=== PATIENT | female | born 1955 | race Caucasian/White ===

== ENCOUNTER 2019-07-03 08:10 | Outpatient (CLI) | payer MEDICAID, SELFPAY ==
--- NOTE | 2019-07-03 08:11 | MM_ITS ---
WS: [id number] BILATERAL DIGITAL SCREENING MAMMOGRAPHY WITH CAD CLINICAL INFORMATION: SCREENING HISTORY: Pain left side under nipple COMPARISON: May 03, 2018 TECHNIQUE: Bilateral CC and MLO views. FINDINGS: Scattered fibroglandular densities bilaterally. No suspicious focal mass, asymmetry, calcifications, or architectural distortion. No evidence of malignancy. MM/[place] [id number] IMPRESSION: BI-RADS: 1-Negative FOLLOW UP: 1 Year Follow-up Recommend return to annual screening mammography.
== END 2019-07-03 08:11 | disposition home or self-care (01) ==
LOC: RADSHAW 08:10
PROVIDERS: PCP Nurse Practitioner Family; Visit Provider Nurse Practitioner Family
DX: Z12.31 Encounter for screening mammogram for malignant neoplasm of breast (principal)
CPT/HCPCS: 77067

== ENCOUNTER → 2020-09-14 08:05 | Outpatient (BNVA) | payer MEDICAID, SELFPAY | PROVIDERS: PCP Nurse Practitioner; Visit Provider Nurse Practitioner | DX: Z13.6 Encounter for screening for cardiovascular disorders (principal); E66.01 Morbid (severe) obesity due to excess calories | CPT/HCPCS: 80053; 80061; 84443; 85025 ==

== ENCOUNTER → 2020-10-21 14:21 | Outpatient (BNVA) | payer MEDICAID, SELFPAY | PROVIDERS: PCP Nurse Practitioner; Visit Provider Nurse Practitioner | DX: M25.561 Pain in right knee (principal); M54.9 Dorsalgia, unspecified; M25.521 Pain in right elbow | CPT/HCPCS: 72072; 72100; 73080; 73562 ==

== ENCOUNTER 2020-11-06 12:38 | Outpatient (CLI) | payer MEDICAID, SELFPAY ==
--- NOTE | 2020-11-06 13:30 | USCV_ITS ---
Adri Alvarez Age: 65 Gender: F : 1955 Exam Date: 11/06/2020 13:09 Ordering Phys: Joaquim Canela M.D ([email or web address]) Technologist: Louisa Carter Exam Location: [facility] – [place] Indication: chest pain BP: 129 / 70 HR: 65 Rhythm: Sinus Technical Quality: Adequate MEASUREMENTS (Male / Female) Normal Values 2D ECHO LV Diastolic Diameter PLAX 4.3 cm 4.2 - 5.9 / 3.9 - 5.3 cm LV Systolic Diameter PLAX 3.1 cm LV Chamber Size 4.1 cm IVS Diastolic Thickness 1.2 cm 0.6 - 1.0 / 0.6 - 0.9 cm IVS Systolic Thickness 1.7 cm LVPW Diastolic Thickness 1.3 cm 0.6 - 1.0 / 0.6 - 0.9 cm LVPW Systolic Thickness 2.0 cm RV Chamber Size 3.7 cm LVOT Diameter 2.0 cm LV Ejection Fraction 2D Teich 53.7 % LV Ejection Fraction MOD 2C 73.9 % LV Ejection Fraction 2C AL 76.2 % LA Diameter 2.6 cm LA Width 3.0 cm LA Height 5.1 cm RA Width 3.4 cm RA Height 3.9 cm Aorta at Sinotubular Diameter 2.8 cm M-MODE Aortic Annulus Diameter 2.8 cm LA Ao Ratio MM 0.9 MV E Point Septal Separation 0.3 cm DOPPLER AV Peak Velocity 183.0 cm/s LVOT Peak Velocity 104.7 cm/s AV Area Cont Eq vti 1.9 cm squared AV Area Cont Eq pk 1.8 cm squared MV Area PHT 3.3 cm squared Mitral E to A Ratio 1.0 MV E' Velocity 62.0 cm/s Mitral E to MV E' Ratio 7.3 Mitral E to LV E' Lateral Ratio 8.1 Mitral E to LV E' Septal Ratio 6.8 TR Peak Velocity 193.5 cm/s TR Peak Gradient 15.0 mmHg TR Mean Velocity 137.0 cm/s TR Mean Gradient 8.4 mmHg TR Velocity Time Integral 41.1 cm Right Atrial Pressure 3.0 mmHg Pulmonary Artery Systolic Pressu 18.0 mmHg PV Peak Velocity 116.0 cm/s RV Acceleration Time 0.1 s RV Ejection Time 0.3 s RV AcT/ET 0.4 FINDINGS Left Ventricle Normal left ventricular size. LVsystolic function is normal with EF of 55-60%. No regional wall motion abnormalities. Normal diastolic filling pattern. Right Ventricle The right ventricle is normal in size and function. Right Atrium The right atrium is normal in size. Left Atrium The left atrium is normal in size. Mitral Valve Structurally normal mitral valve without significant stenosis or prolapse. There is no mitral regurgitation. Aortic Valve Structurally normal aortic valve without significant sclerosis or stenosis. There is no aortic regurgitation. Tricuspid Valve Structurally normal tricuspid valve without significant stenosis or regurgitation. Insufficient TR jet to calculate RVSP Pulmonic Valve Structurally normal pulmonic valve without significant stenosis. There is no pulmonic regurgitation. Pericardium Normal pericardium without effusion. Aorta Normal ascending aorta dimension. CONCLUSIONS LV systolic function is normal with EF of 55-60% Diastolic function is normal No significant valvular heart disease Compared to prior echocardiogram from Joaquim Canela MD (Electronically Signed) Final Date: 15 November 2020 17:03 S
--- NOTE | 2020-11-06 14:15 | USCV_ITS ---
Adri Alvarez Age: 65 Gender: F : 1955 Exam Date: 11/06/2020 12:52 Ordering Phys: Joaquim Canela M.D ([email or web address]) Technologist: Mary Rosas [place] [facility] [place]: chest pain Risk Factors: Previous Vascular Surgery: Right Brachial BP: / Left Brachial BP: / Right Left Velocity (cm/s) Spectral Plaque Velocity (cm/s) Spectral Plaque Syst/Diast Broadening Syst/Diast Broadening 132.30/32.00 Prox CCA 124.50/ 30.20 102.50/24.30 Mid CCA 132.10/ 29.50 113.60/33.10 Distal CCA 132.10/ 32.60 95.90/ 35.30 Prox ICA 104.20/ 30.80 118.00/29.80 Mid ICA 86.10 / 21.10 99.20/ 34.20 Distal ICA 68.10 / 19.50 116.90 ECA 95.10 0.89 ICA/CCA 0.79 Antegrade Vertebral Antegrade 55.20/ 17.10 cm/s 35.00/ 12.40 cm/s Tri Subclavian Tri 116.0 202.0 0 0 FINDINGS Comparison: none available. No significant elevation of systolic or diastolic velocities. Waveforms are normal. Minimal bilateral, intimal thickening with no elevation of velocity. CONCLUSIONS Bilateral ICA stenosis less than 50%. Mild carotid atherosclerosis. Dr. Edna Garvey DO (Electronically Signed) Final Date: 06 November 2020 13:26 S
== END 2020-11-06 12:39 | disposition home or self-care (01) ==
LOC: US 12:39
PROVIDERS: PCP Nurse Practitioner; Visit Provider Internal Medicine
DX: R07.9 Chest pain, unspecified (principal); I65.23 Occlusion and stenosis of bilateral carotid arteries
CPT/HCPCS: 93271; 93306; 93880

== ENCOUNTER → 2020-12-22 09:22 | Outpatient (BNVA) | payer MEDICAID, SELFPAY | PROVIDERS: PCP Nurse Practitioner; Visit Provider Nurse Practitioner | DX: G50.0 Trigeminal neuralgia (principal); I10 Essential (primary) hypertension | CPT/HCPCS: 80053; 82306; 82607 ==

== ENCOUNTER → 2021-08-25 11:36 | Outpatient (BNVA) | payer MEDICAID, SELFPAY | PROVIDERS: PCP Nurse Practitioner; Visit Provider Nurse Practitioner | DX: K30 Functional dyspepsia (principal); E55.9 Vitamin D deficiency, unspecified | CPT/HCPCS: 80053; 80061; 82306; 85025 ==

== ENCOUNTER 2021-12-02 08:23 | Outpatient (CLI) | payer MEDICAID, SELFPAY ==
--- NOTE | 2021-12-02 09:30 | CT_ITS ---
WS: [id number] CT ABDOMEN AND PELVIS NONCONTRAST HISTORY: R63.4 - Abnormal weight loss TECHNIQUE: Imaging performed through the abdomen and pelvis. Coronal and sagittal reformats are submi tted. All CT scans at [facility] use at least one of these dose optimization techniques: auto mated exposure control; mA and/or kV adjustment per patient size (includes targeted exams where dose is matched to clinical indication); or iterative reconstruction. DLP: 1319.93 mGy.cm COMPARISON: 01/07/2016 Lower thorax: 2 mm nodule at the LEFT lung base unchanged since 01/07/2016. Heart is normal size. Small amount of oral contrast in the distal esophagus from reflux disease. Liver: Normal size liver with mild hepatic steatosis. No bile duct dilatation. Gallbladder: Prior cholecystectomy. Pancreas: Normal size and attenuation. Normal pancreatic duct. No pancreatitis or mass. Spleen: Normal. Adrenal glands: Normal. No mass. Right kidney: Normal size kidney with no mass or hydronephrosis. Left kidney: Normal size kidney with no mass or hydronephrosis. Fat-containing 3 mm nodule lower pole is probably a small angiomyolipoma. Aorta: Mild atherosclerosis abdominal aorta with no aneurysm. Moderate calcific burden at the origin of the celiac axis and SMA. There is a component of mild stenosis. No free fluid or free air. There are a few small stable lymph nodes at the GE junction. No adenopathy . GI tract: No evidence for appendicitis. There are a few scattered colonic diverticula without acute d iverticulitis. Stomach is normally distended. No small bowel obstruction. Abdominal wall: Small umbilical hernia contains fat only. Pelvis: Normally distended urinary bladder. No free fluid or adenopathy. Prior hysterectomy. Osseous structures: Unremarkable. CT/CT abdomen pelvis wo con [id number] IMPRESSION: 1. No acute abdominal or pelvic abnormalities. 2. Mild hepatic steatosis. 3. Prior cholecystectomy and hysterectomy. 4. Mild diverticulosis without acute diverticulitis. 5. Moderate atherosclerotic plaque within the aorta with calcific burden at th e celiac axis and SMA. Places the patient at increased risk for ischemia. No is chemic changes at this time.
[2021-12-02] MEDS: barium sulfate 450 mL Oral Susp PO (10:07)
== END 2021-12-02 08:24 | disposition home or self-care (01) ==
LOC: RAD 08:24
PROVIDERS: PCP Nurse Practitioner; Visit Provider Nurse Practitioner
DX: R63.4 Abnormal weight loss (principal); K30 Functional dyspepsia; K76.0 Fatty (change of) liver, not elsewhere classified; Z90.49 Acquired absence of other specified parts of digestive tract; Z90.710 Acquired absence of both cervix and uterus; K57.90 Diverticulosis of intestine, part unspecified, without perforation or abscess without bleeding; I70.0 Atherosclerosis of aorta
CPT/HCPCS: 74176

== ENCOUNTER → 2021-12-22 10:41 | Outpatient (BNVA) | payer MEDICAID, SELFPAY | PROVIDERS: PCP Nurse Practitioner; Visit Provider Nurse Practitioner | DX: M25.522 Pain in left elbow (principal) | CPT/HCPCS: 73080 ==

== ENCOUNTER 2022-07-07 11:21 | Outpatient (CLI) | payer MEDICAID, SELFPAY ==
--- NOTE | 2022-07-07 11:58 | MM_ITS ---
WS: [id number] BILATERAL SCREENING DIGITAL TOMOSYNTHESIS MAMMOGRAM WITH CAD HISTORY: SCREENING COMPARISON: 10/05/2020 and 07/03/2019 Bilateral CC and MLO views with tomosynthesis and synthetic mammography submitted. Computer aided det ection analyzed. Breast composition: There are scattered areas of fibroglandular density. No suspicious masses, microc alcifications or architectural distortion. MM/[place] [id number] IMPRESSION: BI-RADS: 1-Negative FOLLOW UP: 1 Year Follow-up
== END 2022-07-07 11:22 | disposition home or self-care (01) ==
LOC: RAD 11:25
PROVIDERS: PCP Nurse Practitioner; Visit Provider Nurse Practitioner
DX: Z12.31 Encounter for screening mammogram for malignant neoplasm of breast (principal)
CPT/HCPCS: 77063; 77067

== ENCOUNTER → 2022-08-17 14:00 | Outpatient (BNVA) | payer MEDICAID, SELFPAY | PROVIDERS: PCP Nurse Practitioner; Visit Provider Nurse Practitioner | DX: M47.814 Spondylosis without myelopathy or radiculopathy, thoracic region (principal); M89.8X1 Other specified disorders of bone, shoulder | CPT/HCPCS: 72072; 73000 ==

== ENCOUNTER → 2023-05-25 15:07 | Outpatient (BNVA) | payer MEDICAID, SELFPAY | PROVIDERS: PCP Nurse Practitioner; Visit Provider Nurse Practitioner | DX: I10 Essential (primary) hypertension (principal); E55.9 Vitamin D deficiency, unspecified | CPT/HCPCS: 80053; 80061; 82306; 82607; 84443 ==

== ENCOUNTER → 2023-07-07 10:22 | Outpatient (BNVA) | payer MEDICAID, SELFPAY | PROVIDERS: PCP Nurse Practitioner; Visit Provider Family Medicine | DX: M25.511 Pain in right shoulder; M19.011 Primary osteoarthritis, right shoulder | CPT/HCPCS: 73030 ==

== ENCOUNTER 2023-07-11 09:20 | Outpatient (CLI) | payer MEDICAID, SELFPAY ==
--- NOTE | 2023-07-11 09:30 | MM_ITS ---
WS: [id number] SCREENING DIGITAL TOMOSYNTHESIS MAMMOGRAM WITH CAD HISTORY: Z12.31 - Encounter for screening mammogram for malignant ... COMPARISON: 07/07/2022, 10/05/2020 Bilateral CC and MLO with tomosynthesis views submitted. Synthetic mammography reviewed. Computer aid ed detection analyzed. Breast composition: There are scattered areas of fibroglandular density. No suspicious masses, microc alcifications or architectural distortion. Benign calcification in the posterior lateral RIGHT breast . IMPRESSION: MM/[place] [id number] BI-RADS: 2-Benign FOLLOW UP: 1 Year Follow-up
== END 2023-07-11 09:21 | disposition home or self-care (01) ==
LOC: MOBLMAM 09:35
PROVIDERS: PCP Nurse Practitioner; Visit Provider Nurse Practitioner
DX: Z12.31 Encounter for screening mammogram for malignant neoplasm of breast (principal)
CPT/HCPCS: 77063; 77067

== ENCOUNTER 2023-07-12 09:51 | Outpatient (CLI) | payer MEDICAID, SELFPAY ==
--- NOTE | 2023-07-12 10:00 | US_ITS ---
WS: [id number] ULTRASOUND SOFT TISSUES LEFT clavicle. HISTORY: R22.1 - Localized swelling, mass and lump, neck COMPARISON: Radiograph 08/17/2022 TECHNIQUE: 2-D and color Doppler imaging is submitted. There is a complex soft tissue mass associated with the medial end of the LEFT clavicle. This is a co mplex ill-defined mass with areas of decreased and increased echogenicity. There is some slight incre ased vascularity also associated with the mass. The entire collection measures approximately 1.6 x 2. 2 x 1.2 cm. This is asymmetric to the RIGHT clavicular head. The actual bone is not visible by ultras ound of the clavicle. IMPRESSION: 1. Mildly hypervascular complex soft tissue mass associated with the LEFT clavicular head. Different ial includes inflammatory arthropathy/rheumatoid arthritis of the LEFT clavicular head. SC joint infe ction is also a possibility but thought less likely. Cannot completely exclude a mass related to meta static disease. 2. Additional evaluation may include a CT of the SC joints with contrast. If there is current concer n for metastatic disease bone scan imaging may be of benefit.
== END 2023-07-12 09:52 | disposition home or self-care (01) ==
LOC: RAD 09:51
PROVIDERS: PCP Nurse Practitioner; Visit Provider Family Medicine
DX: R22.1 Localized swelling, mass and lump, neck (principal)
CPT/HCPCS: 76536

== ENCOUNTER 2023-07-24 07:51 | Outpatient (CLI) | payer MEDICAID, SELFPAY ==
--- NOTE | 2023-07-24 08:45 | NM_ITS ---
WS: [id number] NUCLEAR MEDICINE BONE SCAN Radiopharmaceutical: 24.5 Tc-99m MDP mCi IV Injection site: Antecubital Postinjection imaging delay: 1 hr CLINICAL INFORMATION: supraclavicular mass COMPARISON: Ultrasound 07/12/2023 FINDINGS: Bone lesions: Focal radiotracer uptake at the LEFT sternoclavicular articulation. This corresponds to the process previously described on the prior ultrasound. No other suspicious foci of uptake to indicate metastatic disease. Degenerative type uptake both knees and both AC joints. There are no osseous lesions suspicious for metastatic disease. Soft tissue contours: Normal. Kidneys: Normal. Other findings: None. IMPRESSION: 1. Focal radiotracer uptake at the LEFT sternoclavicular articulation. This corresponds to the proce ss previously described on the prior ultrasound. Focal uptake may be infectious, inflammatory, or deg enerative. Neoplasm is considered less likely. This could be further evaluated with contrast-enhanced CT if persistent concern 2. No other foci of abnormal bony activity.
== END 2023-07-24 07:52 | disposition home or self-care (01) ==
LOC: RAD 07:52
PROVIDERS: PCP Nurse Practitioner; Visit Provider Family Medicine
DX: R22.2 Localized swelling, mass and lump, trunk (principal)
CPT/HCPCS: 78306; A9561

== ENCOUNTER 2023-08-11 10:03 | Emergency (ER) | payer MEDICAID, SELFPAY ==
[2023-08-11] VITALS (9 sets, daily range): BP systolic 125–206; BP diastolic 70–92; PULSE 63–91; RESP 16–18; TEMP 36.5; O2SAT 96; BMI 35.7
--- NOTE | 2023-08-11 10:42 | XR_ITS ---
WS: [id number] Portable AP upright chest, 08/11/2023 Clinical Data: dyspnea/cough Comparison: Two-view chest, 06/23/2015. Findings: No nodules, masses or effusions are seen. The heart is normal. The pulmonary vascularity is not increased. No pneumonia or pneumothorax is seen. The aortic arch and descending thoracic aorta s how mild tortuosity. There is a monitor lead in the left axilla. Impression: Atherosclerosis.
--- NOTE | 2023-08-11 10:43 | ECG_ITS ---
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 Measurements Intervals [place] Rate: 59 P: 38 OR: 175 QRS: 32 QRSD: 86 T: 44 QT: 434 QTc: 431 Interpretive Statements SINUS BRADYCARDIA Compared to ECG 06/23/2015 12:39:32 No significant changes Electronically Signed On 08-11-2023 17:00:30 CDT by Joaquim Canela M.D. [email or web address]/store/[id number]
[2023-08-11] MEDS: hyDRALAzine 20 mg/mL INJ 1 mL IVP (11:24)
[2023-08-11 11:31] LABS: Add Urine Culture? No; Add Urine Microscopic? YES; Bacteria Urine 2+ /hpf; Bilirubin Urine Neg (Negative); Blood Urine Trace (Negative); Glucose Urine UA Norm (Normal); Ketones Urine Negative (Negative); Leukocyte Esterase Urine Negative (Negative); Nitrate Urine Negative (Negative); Protein Urine Neg (Negative); RBC Urine 0-4 /hpf (0-2); Squamous Epithelial Cell Urine 15-25 /hpf (0-5); Urine Appearance Hazy (CLEAR); Urine Color Yellow (Yellow); Urobilinogen Urine Neg (Negative); pH Urine 5 (5-7)
[2023-08-11 11:37] LABS: Basophils % 0.3 %; Eosinophils # 0.4 10^3/uL (0.0-0.8); Eosinophils % 5.9 %; Hematocrit 44.4 % (36-47); Lymphocytes # 1.8 10^3/uL (0.8-4.8); Mean Corpuscular HGB Conc 33.1 g/dL (30-55); Mean Corpuscular Hemoglobin 32.2 pg (27-33); Mean Corpuscular Volume 97.4 fl (85-98); Mean Platelet Volume 10.1 fL (7.4-10.4); Monocytes # 0.5 10^3/uL (0.2-0.9); Monocytes % 7.8 %; Neutrophils # 4.06 10^3/uL (1.8-7.7); Neutrophils % 59.9 %; Nucleated Red Blood Cells % 0 %; Platelet Count 248 10^3/cmm (157-399); Red Blood Count 4.56 10^6/uL (3.85-5.65); Red Cell Distribution Width 12.3 % (12.1-15.1); White Blood Count 6.78 10^3/uL (3.29-11.43)
[2023-08-11 11:56] LABS: Alanine Aminotransferase 21 U/L (0-33); Albumin Level 4.1 g/dL (3.5-5.2); Alkaline Phosphatase 77 U/L (35-105); Aspartate Amino Transferase 18 U/L (0-32); Blood Urea Nitrogen 13 mg/dL (8-23); Carbon Dioxide 24 mmol/L (22-29); Chloride 105 mmol/L (98-107); Creatinine Clr Calc Pharmacy 84.8437; Glomerular Filtration Rate 99.1 mL/min (90-130); Glucose 103 mg/dL (65-115); Osmolality Calculated 288 mOsm/kg (285-295); Sodium 139 mmol/L (136-145); Total Bilirubin 0.3 mg/dL (0.15-1.2); Total Protein 7.1 g/dL (6.6-8.7)
[2023-08-11 11:57] LABS: Troponin(5th) Baseline 8 ng/L (0-10)
--- NOTE | 2023-08-11 12:03 | CT_ITS ---
WS: [id number] CT HEAD NONCONTRAST HISTORY: headache, Nausea, elevated BP TECHNIQUE: Contiguous axial imaging performed through the brain in 2.5 mm imaging. Bone and soft tiss ue windows. Sagittal and coronal reformats reviewed. All CT scans at [facility] use at least one of these dose optimization techniques: automated exposure control; mA and/or kV adjustment per pa tient size (includes targeted exams where dose is matched to clinical indication); or iterative recon struction. DLP: 1080.88 mGy.cm COMPARISON: 12/02/2016 No acute intracranial hemorrhage, midline shift or mass effect. No atrophy or prior infarcts or herniation. No evidence for edema in the posterior circulation. Ventricles: Normal size with no hydrocephalus. Paranasal sinuses: Diffuse mucoperiosteal thickening throughout the sinus cavities. Mastoid air cells: Well pneumatized. Calvarium and scalp: Skull is intact with no soft tissue edema or swelling. IMPRESSION: 1. No acute intracranial hemorrhage or edema. 2. No hydrocephalus. No prior infarct. 3. Extensive chronic paranasal sinus disease.
--- NOTE | 2023-08-11 12:04 | W.ED.RECABL ---
HPI - Recheck/Abnormal Lab/Rx General: Chief Complaint: Recheck/Abnormal Lab/Rx Stated Complaint: High blood pressure Time Seen by Provider: 08/11/23 10:41 Source: patient Mode of arrival: ambulatory History of Present Illness: 68-year-old female presents emergency room with elevated blood pressure. She is not on any antihypertensive she has at high blood pressure which she describes as low blood sugars in the past. She has had episodes like this before she has a headache which along with it. No visual symptoms no difficulty speech or swallowing she states her legs felt numb yesterday that resolved. Denies chest pain. Review of Systems Const: Denies: fever(s) or chills Card: Denies: chest pain Resp: Denies: dyspnea GI: Denies: abdominal pain : Denies: dysuria, urinary frequency or urinary urgency Musc: Denies: neck pain or back pain Skin/Breast: Denies: rash PFSH ED PFSH: Medical History Spinal osteoarthritis Hyperlipidemia, mixed Hypertension Seasonal allergic rhinitis due to pollen Obesities, morbid Surgical History History of incisional hernia repair 1990 History of cholecystectomy open 1990 History of hysterectomy History of bladder surgery 2019 bladder sling Family History Other Diabetes Stroke Social History Smoking and tobacco/nicotine status: former use of tobacco/nicotine Second hand smoke exposure: No Alcohol intake: never Substance/Drug Use: never Adopted: No Caregiver/support person: No Lives independently: Yes Household members: none Housing: Manufactured/Mobile home Marital status: Number of children: 2 Highest education level completed: GED or Equivalent service: No Current occupational status: disabled Pets and animals: No Physical Exam Const: GENERAL APPEARANCE: cooperative and comfortable ORIENTATION/CONSCIOUSNESS: Yes awake, Yes oriented to person, Yes oriented to place and Yes oriented to time HENMT: COMMON NORMALS: normocephalic, atraumatic and hearing grossly normal bilaterally HEAD & SCALP: normocephalic and atraumatic Resp: COMMON NORMALS: normal respiratory effort, No retractions, No use of accessory muscles and clear to auscultation bilaterally AUSCULTATION: clear to auscultation bilaterally Cardio: COMMON NORMALS: regular rate, regular rhythm and No murmurs present (Cardio) RATE: regular rate RHYTHM: regular rhythm GI: COMMON NORMALS: Soft to palpation and No hepatosplenomegaly present AUSCULTATION: Yes normoactive bowel sounds PALPATION: Yes Soft to palpation, No Tenderness to palpation present (GI), No Guarding due to palpation present (GI) and Yes No hepatosplenomegaly present Extremity: COMMON NORMALS: normal to inspection, capillary refill normal, no clubbing, cyanosis or edema, no calf tenderness and no pedal edema Neuro: SENSORIUM/ORIENTATION: Yes oriented to person, Yes oriented to place and Yes oriented to time Skin: COMMON NORMALS: no rashes or lesions noted GENERAL SKIN EXAM: no rashes or lesions noted Course Vital Signs: Vital signs: Vital Signs Temperature 97.7 F 08/11/23 10:06 Pulse Rate 91 08/11/23 13:53 Respiratory Rate 18 08/11/23 13:53 Blood Pressure 160/81 08/11/23 16:09 Pulse Oximetry 96 08/11/23 13:53 Oxygen Delivery Me thod Room Air 08/11/23 13:53 MDM - Recheck/Abnormal Lab/Rx Medical Decision Making Blood pressure improved patient's headache persisted she was given Reglan and Benadryl is feeling much better nausea vomiting have resolved repeat exam shows no focal neurologic deficits noted. CT head did not show any acute findings. NIH score is 0. No ataxia no suggestion of posterior circulation stroke at this time. Discharge patient home on amlodipine 5 mg daily Tylenol ibuprofen as needed for persistent headache follow-up with primary care doctor within the next week to reevaluate blood pressure. Medical Records I reviewed the patient's medical records. Lab Data I reviewed the patient's lab results. 08/11/23 11:25 08/11/23 11:25 Laboratory Results WBC 6.78 10^3/uL (3.29-11.43) 08/11/23 11:25 RBC 4.56 10^6/uL (3.85-5.65) 08/11/23 11:25 Hgb 14.70 g/dL (11.27-16.99) 08/11/23 11:25 Hct 44.4 % (36-47) 08/11/23 11:25 MCV 97.4 fl (85-98) 08/11/23 11:25 MCH 32.2 pg (27-33) 08/11/23 11: MCHC 33.1 g/dL (30-55) 08/11/23 11:25 RDW 12.3 % (12.1-15.1) 08/11/23 11:25 Plt Count 248 10^3/cmm (157-399) 08/11/23 11:25 MPV 10.1 fL (7.4-10.4) 08/11/23 11:25 Neut % (Auto) 59.9 % 08/11/23 11: Lymph % (Auto) 26.0 % 08/11/23 11: [place] % (Auto) 7.8 % 08/11/23 11: Eos % (Auto) 5.9 % 08/11/23 11: Baso % (Auto) 0.3 % 08/11/23 11:25 Neut # (Auto) 4.06 10^3/uL (1.8-7.7) 08/11/23 11:25 Lymph # (Auto) 1.8 10^3/uL (0.8-4.8) 08/11/23 11:25 [place] # (Auto) 0.5 10^3/uL (0.2-0.9) 08/11/23 11:25 Eos # (Auto) 0.4 10^3/uL (0.0-0.8) 08/11/23 11:25 Baso # (Auto) 0.0 10^3/uL (0.0-0.1) 08/11/23 11:25 Nucleated RBC % (auto) 0 % 08/11/23 11:25 Nucleated RBCs # 0.0 /100WBC 08/11/23 11:25 Sodium 139 mmol/L (136-145) 08/11/23 11:25 Potassium 4.4 mmol/L (3.5-5.1) 08/11/23 11: Chloride 105 mmol/L (98-107) 08/11/23 11: Carbon Dioxide 24 mmol/L (22-29) 08/11/23 11:25 Anion Gap 14.4 (5-19) 08/11/23 11:25 BUN 13 mg/dL (8-23) 08/11/23 11:25 Creatinine 0.6 mg/dL (0.5-0.9) 08/11/23 11:25 GFR Calculation 99.1 mL/min (90-130) 08/11/23 11:25 Glucose 103 mg/dL (65-115) 08/11/23 11:25 Calculated Osmolality 288 mOsm/kg (285-295) 08/11/23 11:25 Calcium 10.0 mg/dL (8.5-10.5) 08/11/23 11:25 Total Bilirubin 0.3 mg/dL (0.15-1.2) 08/11/23 11:25 AST 18 U/L (0-32) 08/11/23 11: ALT 21 U/L (0-33) 08/11/23 11:25 Alkaline Phosphatase 77 U/L (35-105) 08/11/23 11:25 Troponin T Baseline 8 ng/L (0-10) 08/11/23 11:25 Troponin T 120 Minute 7.31 ng/L (0-10) 08/11/23 13:13 Delta Troponin T -0.69 ABS# (0-10) L 08/11/23 13:13 Total Protein 7.1 g/dL (6.6-8.7) 08/11/23 11:25 Albumin 4.1 g/dL (3.5-5.2) 08/11/23 11:25 Globulin 3.0 g/dL (1.3-4.6) 08/11/23 11:25 Urine Color Yellow (Yellow) 08/11/23 10:24 Urine Appearance Hazy (CLEAR) A 08/11/23 10:24 Urine pH 5 (5-7) 08/11/23 10:24 Ur Specific [place] 1.020 (1.005-1.030) 08/11/23 10:24 Urine Protein Neg (Negative) 08/11/23 10:24 Urine Glucose (UA) Norm (Normal) 08/11/23 10:24 Urine Ketones Negative (Negative) 08/11/23 10:24 Urine Blood Trace (Negative) H 08/11/23 10:24 Urine Nitrate Negative (Negative) 08/11/23 10:24 Urine Bilirubin Neg (Negative) 08/11/23 10:24 Urine Urobilinogen Neg mg/dL (Negative) 08/11/23 10:24 Ur Leukocyte Esterase Negative (Negative) 08/11/23 10:24 Urine RBC 0-4 /hpf (0-2) H 08/11/23 10:24 Urine WBC None /hpf (0-5) 08/11/23 10:24 Ur Squamous Epith Cells 15-25 /hpf (0-5) H 08/11/23 10:24 Amorphous Sediment Not Reportable 08/11/23 10:24 Urine Bacteria 2+ /hpf (NONE) H 08/11/23 10:24 All radiology interpretation(s) finalized by discharge Discharge Plan Discharge Patient Disposition: Home Clinical Impression: Headache Hypertension Qualifiers: Hypertension type: primary hypertension Qualified Code(s): I10 - Essential (primary) hypertension Condition: Stable Prescriptions: New amlodipine 5 mg tablet 5 mg PO DAILY Qty: 30 0RF No Action acetaminophen [Tylenol Extra Strength] 500 mg tablet 500 mg PO Q6H PRN (Reason: Pain) omega 5-hph-jxh-fish oil [Fish Oil] 1,000 mg (120 mg-180 mg) capsule 2 cap PO BID Qty: 120 0RF Metamucil 3.4 gram/5.4 gram powder 1 tbsp PO BID PRN (Reason: constipation.) Rx Instructions: mix into at least 8 oz of water or juice before administering Discharge Orders: Discharge ED (Routine); Ordered 08/11/23 Ordered By: Esteban Dias Referrals: Ramesh Angelo, [facility] [Primary Care Provider] - Discharge Diet: Usual diet Discharge Activity: Resume usual activity Patient Instructions: Opioid Safety, Pain Management Activity Restrictions/Additional Instructions: Thank you for choosing [facility] for your healthcare needs today. Please realize this is an emergency room and that we are providing you with a medical screening exam and this may not be complete and all inclusive of all the testing and or work up that you may need to determine your ailment or severity of your illness. It is very important that you follow up as instructed or that you return to the Emergency Department should you have concerns or if your condition changes or worsens in any way. You were seen today for headache and elevated blood pressure. Recommend you start amlodipine 5 mg once daily follow-up with your primary care doctor the next week to reevaluate blood pressure. You can take Tylenol ibuprofen as needed if your headache symptoms recur Coding Level of Care Code ED Diamond Die Maker for Gayathri Carter
[2023-08-11 12:15] LABS: Anion Gap 14.4 (5-19); Potassium 4.4 mmol/L (3.5-5.1)
--- NOTE | 2023-08-11 12:43 | ECG_ITS ---
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 Measurements Intervals [place] Rate: 79 P: 73 FL: 184 QRS: 43 QRSD: 89 T: 58 QT: 411 QTc: 473 Interpretive Statements SINUS RHYTHM WITH SINUS ARRHYTHMIA Compared to ECG 08/11/2023 10:55:53 Sinus bradycardia no longer present Electronically Signed On 08-11-2023 17:05:15 CDT by Joaquim Canela M.D. [id number]
[2023-08-11] MEDS: ketorolac 30 mg/mL INJ IVP (12:51)
[2023-08-11] MEDS: amlodipine 10 mg Tablet PO (13:42)
[2023-08-11 13:55] LABS: Troponin 5 2HR 7.31 ng/L (0-10)
[2023-08-11 13:56] LABS: Troponin 5 2HR Delta -0.69 ABS# (0-10)
[2023-08-11] MEDS: diphenhydrAMINE 50 mg/mL SDV 1mL IVP (14:40)
[2023-08-11] MEDS: metoclopramide 5 mg/mL SDV 2 mL 10 MG IVP (14:40)
== END 2023-08-11 16:10 | disposition home or self-care (01) ==
PROVIDERS: Emergency Provider Family Medicine; PCP Nurse Practitioner
DX: I10 Essential (primary) hypertension (principal); R51.9 Headache, unspecified; Z87.891 Personal history of nicotine dependence; E78.2 Mixed hyperlipidemia
CPT/HCPCS: 36415; 70450; 71045; 80053; 81001; 84484; 85025; 93005; 96374; 96375; 99285; J0360; J1200; J1885; J2765

== ENCOUNTER 2023-09-01 08:06 | Outpatient (CLI) | payer MEDICAID, SELFPAY ==
--- NOTE | 2023-09-01 08:09 | CTR_ITS ---
PROCEDURE INFORMATION: Exam: CT Abdomen And Pelvis Without Contrast Exam date and time: 09/01/2023 8:23 AM Age: 68 years old Clinical indication: Abdominal pain; Localized; Right upper quadrant (ruq); Prior surgery; Surgery date: 6+ months; Surgery type: Gb, incisional hernia, hyster, bladder tie; Additional info: Ruq pain TECHNIQUE: Imaging protocol: Computed tomography of the abdomen and pelvis without contrast. Radiation optimization: All CT scans at this facility use at least one of these dose optimization techniques: automated exposure control; mA and/or kV adjustment per patient size (includes targeted exams where dose is matched to clinical indication); or iterative reconstruction. COMPARISON: CT abdomen pelvis wo con [id number] 08/06/2021 09:47 RADIATION DOSE METRICS: Total DLP (mGy-cm): 904.63 FINDINGS: Liver: Hepatic steatosis. Gallbladder and bile ducts: Cholecystectomy. Pancreas: Normal. No ductal dilation. Spleen: Normal. No splenomegaly. Adrenal glands: Normal. No mass. 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 The kidneys are otherwise unremarkable Stomach and bowel: Colonic diverticulosis but no evidence of diverticulitis. Small duodenal diverticulum. The small bowel loops are unremarkable. Appendix: No evidence of appendicitis. Intraperitoneal space: No free air or free fluid. Vasculature: Stable calcified plaques at the origins of the renal arteries, celiac trunk and SMA. Stable calcified plaques of the infrarenal abdominal aorta and iliac arteries. Lymph nodes: Mild stranding of the mid mesenteric fat with several small mesenteric lymph nodes. This imer mesentery ? is nonspecific but can be seen with mesenteric panniculitis. Urinary bladder: Unremarkable as visualized. Reproductive: Hysterectomy. Bones/joints: No acute osseous lesions. Soft tissues: Tiny fat containing periumbilical hernia. CT/CT abdomen pelvis wo con [id number] IMPRESSION: 1. Hepatic steatosis. 2. Previous cholecystectomy. No biliary dilatation. 3. Mild stranding of the mid mesenteric fat with several small mesenteric lymph nodes, nonspecific but can be seen with mesenteric panniculitis 4. 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
== END 2023-09-01 08:07 | disposition home or self-care (01) ==
LOC: RAD 08:06
PROVIDERS: PCP Nurse Practitioner; Visit Provider Internal Medicine
DX: K76.0 Fatty (change of) liver, not elsewhere classified (principal); D17.71 Benign lipomatous neoplasm of kidney; R10.11 Right upper quadrant pain
CPT/HCPCS: 74176

== ENCOUNTER → 2023-12-11 09:02 | Outpatient (BNVA) | payer MEDICAID, SELFPAY | PROVIDERS: PCP Nurse Practitioner; Visit Provider Nurse Practitioner | DX: M25.552 Pain in left hip (principal); M25.562 Pain in left knee; M54.50 Low back pain, unspecified; M79.605 Pain in left leg | CPT/HCPCS: 73502; 73562 ==

== ENCOUNTER → 2024-03-13 08:26 | Outpatient (BNVA) | payer MEDICAID, SELFPAY | PROVIDERS: PCP Nurse Practitioner; Visit Provider Nurse Practitioner | DX: E78.2 Mixed hyperlipidemia (principal); E55.9 Vitamin D deficiency, unspecified | CPT/HCPCS: 80053; 80061; 82306; 84443; 85025 ==

== ENCOUNTER → 2024-05-28 13:52 | Outpatient (BNVA) | payer MEDICAID, SELFPAY | PROVIDERS: PCP Nurse Practitioner; Visit Provider Student in an Organized Health Care Education/Training Program | DX: M17.12 Unilateral primary osteoarthritis, left knee (principal); M25.562 Pain in left knee | CPT/HCPCS: 73560; 73565; 99204 ==

== ENCOUNTER 2024-07-04 13:00 | Outpatient (CLI) | payer MEDICAID, SELFPAY ==
--- NOTE | 2024-07-04 13:07 | XR_ITS ---
WS: [id number] XR cervical spine 3V* [id number] REASON FOR EXAM: M54.2 - Cervicalgia FINDINGS: Mild straightening of the normal lordosis of the cervical spine. No significant compression deformity or focal lesion of the cervical vertebrae. Normal odontoid. Moderate narrowing of the C5-C6 and C6-C7 disc spaces with moderate endplate sclerosis and posterior and anterior osteophytosis. No significant listhesis. Bilateral calcified carotid artery plaque. XR/XR cervical spine 3V* [id number] IMPRESSION: Cervical degenerative spondylosis progressive compared to 09/24/2015. Bilateral calcified carotid artery plaque.
== END 2024-07-04 13:01 | disposition home or self-care (01) ==
PROVIDERS: PCP Nurse Practitioner; Visit Provider Nurse Practitioner
DX: M54.2 Cervicalgia (principal); M47.892 Other spondylosis, cervical region; R93.7 Abnormal findings on diagnostic imaging of other parts of musculoskeletal system; I65.23 Occlusion and stenosis of bilateral carotid arteries
CPT/HCPCS: 72040

== ENCOUNTER → 2025-03-06 07:58 | Outpatient (BNVA) | payer MEDICAID, SELFPAY | PROVIDERS: PCP Nurse Practitioner; Visit Provider Nurse Practitioner | DX: E78.2 Mixed hyperlipidemia (principal); E55.9 Vitamin D deficiency, unspecified | CPT/HCPCS: 80053; 80061; 82306; 84443 ==

== ENCOUNTER 2025-03-17 13:30 | Outpatient (CLI) | payer MEDICAID, SELFPAY ==
--- NOTE | 2025-03-17 13:36 | XR_ITS ---
WS: [id number] XR tibia fibula LT 2V [id number] REASON FOR EXAM: M79.89 - Other specified soft tissue disorders FINDINGS: Tibia and fibula are intact without fracture, focal bone lesion, or periosteal reaction. No radiopaque soft tissue foreign body. XR/XR tibia fibula LT 2V [id number] IMPRESSION: No significant abnormality.
--- NOTE | 2025-03-17 13:45 | US_ITS ---
WS: [id number] ULTRASOUND SOFT TISSUES LEFT calf HISTORY: M79.89 - Other specified soft tissue disorders COMPARISON: Radiograph 03/17/2025 TECHNIQUE: 2-D and color Doppler imaging is submitted. Ultrasound of the LEFT lower extremity in the area of interest demonstrates no abnormality. There is no fluid collection or mass. US/US soft tissue/extremity [id number] IMPRESSION: No ultrasound abnormality RIGHT lower extremity.
== END 2025-03-17 13:31 | disposition home or self-care (01) ==
LOC: RAD 13:31
PROVIDERS: PCP Nurse Practitioner; Visit Provider Nurse Practitioner
DX: M79.89 Other specified soft tissue disorders (principal); M89.8X6 Other specified disorders of bone, lower leg
CPT/HCPCS: 73590; 76882

== ENCOUNTER → 2025-04-01 14:01 | Outpatient (BNVA) | payer MEDICAID, SELFPAY | PROVIDERS: PCP Nurse Practitioner; Visit Provider Nurse Practitioner Family | DX: L82.1 Other seborrheic keratosis (principal); D22.62 Melanocytic nevi of left upper limb, including shoulder; L81.4 Other melanin hyperpigmentation; L57.8 Other skin changes due to chronic exposure to nonionizing radiation; L57.0 Actinic keratosis | CPT/HCPCS: 17000; 99203 ==